=== PATIENT | female | born 1995 | race Caucasian/White ===

== ENCOUNTER → 2017-08-30 | Outpatient (CLI) | payer OTHER | LOC: HPND 09:30 | PROVIDERS: ATTEND Obstetrics & Gynecology | DX: O99.212 Obesity complicating pregnancy, second trimester (principal); E66.09 Other obesity due to excess calories; Z68.32 Body mass index [BMI] 32.0-32.9, adult; Z36.3 Encounter for antenatal screening for malformations; O36.8920 Maternal care for other specified fetal problems, second trimester, not applicable or unspecified; O09.212 Supervision of pregnancy with history of pre-term labor, second trimester; O44.42 Low lying placenta NOS or without hemorrhage, second trimester; O43.892 Other placental disorders, second trimester | CPT/HCPCS: 76811 ==

== ENCOUNTER 2017-09-27 10:29 | Emergency (ER) | payer OTHER ==
[2017-09-27 10:48] VITALS: BP 119/55; PULSE 87
[2017-09-27 10:50] VITALS: RESP 18
[2017-09-27 10:51] VITALS: TEMP 98.4
--- NOTE | 2017-09-27 10:52 | PD ---
HPI Chief Complaint Cramping Date Seen: Sep 27, 2017 Travel History International Travel<30 Days: No Contact w/Intl Traveler<30Days: No History of Present Illness HPI Patient is a 22-year-old at 23-4/7 weeks gestation who presents today for cramping. She notes that the cramping started over the last couple days. The cramping comes and goes and is associated with bloating. She denies any vaginal bleeding, but does note a light yellowish discharge for the past week. She denies any vaginal burning, itching, or pain. She denies any dysuria or hematuria. She has been feeling the baby moving. care with care for women. History Past Medical History Narrative Medical Spina Bifida Obstetric History Obstetric History History of delivery at 35 weeks gestation x 2 Past Surgical History Surgical History: No Previous Surgery Family History Family History: Negative Social History Alcohol Use: No Tobacco Use: No Substance Abuse: No Allergies-Medications (Allergen,Severity, Reaction): Coded Allergies: No Known Allergies (Verified Adverse Reaction, Unknown, 05/20/17) Home Meds Active Scripts Ferrous Sulfate (Ferrous Sulfate) 325 Mg (65 Mg Iron) Tablet, 325 MG PO TIDPC for Nutritional Supplement, #90 TAB 0 Refills Prov:Janey David MD R3 09/27/17 Nitrofurantoin Monohydrate Macrocrystals (Nitrofurantoin Monohydrate Macrocrystals) 100 Mg Cap, 100 MG PO BID for Infection, #14 CAP 0 Refills Prov:Janey David MD R3 09/27/17 Review of Systems Except as stated in HPI: all other systems reviewed are Neg General / Constitutional: No: Fever, Chills Eyes: No: Blurred Vision, Visual changes HENT: Headaches Cardiovascular: No: Chest Pain or Discomfort Respiratory: No: Short of Breath Gastrointestinal: No: Nausea, Vomiting, Diarrhea, Abdominal Pain, Constipation Genitourinary: Pelvic Pain, Discharge, No: Dysuria, Hematuria, Vaginal Bleeding Musculoskeletal: Edema Neurologic: Headache Psychiatric: No: Substance Abuse Physical Exam Narrative GENERAL: Well-nourished, well-developed patient. SKIN: Warm and dry. HEAD: Normocephalic and atraumatic. EYES: No scleral icterus. No injection or drainage. ENT: No nasal drainage noted. Mucous membranes pink. Airway patent. NECK: Supple, trachea midline. No JVD. CARDIOVASCULAR: Regular rate and rhythm without murmurs, gallops, or rubs. RESPIRATORY: Breath sounds equal bilaterally. No accessory muscle use. ABDOMEN/GI: Abdomen distended, soft, tender to palpation in all four quadrants. Gravid to 23 weeks size Fundal Height: 23cm GENITOURINARY: Yellowish white discharge in vaginal vault. External Genitalia: intact and normal in appearance BUS glands:normal Cervix: posterior Dilatation: 0 Effacement: 0 Station: -3 Presentation: - Membranes: intact Uterine Contractions: none FHT's: Category: I Baseline: 150 Reactive: + Variability: moderate Decels: none EXTREMITIES: No cyanosis or edema. BACK: Nontender without obvious deformity. No CVA tenderness. NEUROLOGICAL: Awake and alert. Motor and sensory grossly within normal limits. Normal speech. Data Data Vital Signs Reviewed: Yes Orders Orders Vital Signs (Adult) .ON ADMISSION (09/27/17 10:34) ^ Labor Status (09/27/17 10:34) Heart (09/27/17 10:34) ^ Hydration (09/27/17 10:34) Labs Laboratory Tests Test 09/27/17 10:45 09/27/17 11:00 09/27/17 11:25 Urine Color YELLOW Urine Turbidity HAZY Urine pH 8.0 Urine Specific [place] 1.036 Urine Protein 30 mg/dL Urine Glucose (UA) NEG mg/dL Urine Ketones NEG mg/dL Urine Occult Blood NEG Urine Nitrite NEG Urine Bilirubin NEG Urine Urobilinogen 2.0 MG/DL Urine Leukocyte Esterase LARGE Urine RBC 1 /hpf Urine WBC 1 /hpf Urine Squamous Epithelial Cells 26 /hpf Urine Bacteria MOD /hpf Urine Hyaline Casts 2 /lpf Urine Mucus FEW /lpf Microscopic Urinalysis Comment CULTURE INDICATED Clue Cells (Wet Prep) NONE SEEN Vaginal Trichomonas (Wet Prep) NONE SEEN Vaginal Yeast (Wet Prep) NONE SEEN White Blood Count 7.6 TH/MM3 Red Blood Count 4.20 MIL/MM3 Hemoglobin 9.7 GM/DL Hematocrit 29.9 % Mean Corpuscular Volume 71.2 FL Mean Corpuscular Hemoglobin 23.1 PG Mean Corpuscular Hemoglobin Concent 32.5 % Red Cell Distribution Width 16.4 % Platelet Count 240 TH/MM3 Mean Platelet Volume 8.8 FL Neutrophils (%) (Auto) 65.8 % Lymphocytes (%) (Auto) 24.0 % Monocytes (%) (Auto) 7.8 % Eosinophils (%) (Auto) 2.0 % Basophils (%) (Auto) 0.4 % Neutrophils # (Auto) 5.0 TH/MM3 Lymphocytes # (Auto) 1.8 TH/MM3 Monocytes # (Auto) 0.6 TH/MM3 Eosinophils # (Auto) 0.1 TH/MM3 Basophils # (Auto) 0.0 TH/MM3 CBC Comment DIFF FINAL Differential Comment Blood Urea Nitrogen 7 MG/DL Creatinine 0.45 MG/DL Random Glucose 77 MG/DL Total Protein 6.5 GM/DL Albumin 2.8 GM/DL Calcium Level 8.1 MG/DL Alkaline Phosphatase 69 U/L Aspartate Amino Transf (AST/SGOT) 8 U/L Alanine Aminotransferase (ALT/SGPT) 10 U/L Total Bilirubin 0.2 MG/DL Sodium Level 139 MEQ/L Potassium Level 3.9 MEQ/L Chloride Level 107 MEQ/L Carbon Dioxide Level 23.2 MEQ/L Anion Gap 9 MEQ/L Estimat Glomerular Filtration Rate 171 ML/MIN Last Impressions Gall Bladder Ultrasound 09/27/17 0000 Signed Impressions: CONCLUSION: 1. Unremarkable study. MDM Medical Record Reviewed: Yes Narrative Course / MDM 22 year old at 23-4/7 weeks gestation. 1. IUP- Category I tracing, reassuring. 2. Abdominal pain- will obtain CBC, CMP, UA, gallbladder US for further evaluation. 3. Vaginal Discharge- obtain wet prep and GC/chlamydia sdw Dr. Benavides Addendum: UA significant UTI. CBC significant for anemia. Workup otherwise negative. Will discharge home with Macrobid and ferrous sulfate. Encourage rest and oral hydration. Follow-up with [facility]. Diagnosis Diagnosis: Primary Impression: Acute cystitis during in second trimester Additional Impression: Iron (Fe) deficiency anemia Disposition: DISCHARGE HOME Condition: Stable Scripts Ferrous Sulfate (Ferrous Sulfate) 325 Mg (65 Mg Iron) Tablet 325 MG PO TIDPC for Nutritional Supplement, #90 TAB 0 Refills Prov: Janey David MD R3 09/27/17 Nitrofurantoin Monohydrate Macrocrystals (Nitrofurantoin Monohydrate Macrocrystals) 100 Mg Cap 100 MG PO BID for Infection, #14 CAP 0 Refills Prov: Janey David MD R3 09/27/17 Janey David MD R3 Sep 27, 2017 10:52
[2017-09-27] MEDS ORDERED: LACTATED RINGER'S 1000 ML INJ 1,000 ML IV SCH (11:09)
[2017-09-27 11:50] LABS: BASOPHIL % 0.4 % (0.0-2.0); EOSINOPHIL # 0.1 TH/MM3 (0-0.4); HEMATOCRIT 29.9 % (35.0-46.0); HEMOGLOBIN 9.7 GM/DL (11.6-15.3); LYMPHOCYTE # 1.8 TH/MM3 (1.0-4.8); MEAN CELL VOLUME 71.2 FL (80.0-100.0); MEAN CORPUSCULAR HEMOGLOBIN 23.1 PG (27.0-34.0); MEAN CORPUSCULAR HGB CONC 32.5 % (32.0-36.0); MEAN PLATELET VOLUME 8.8 FL (7.0-11.0); MONO % 7.8 % (0.0-8.0); MONOCYTE # 0.6 TH/MM3 (0-0.9); NEUT % 65.8 % (16.0-70.0); PLATELET COUNT 240 TH/MM3 (150-450); RED CELL DISTRIBUTION WIDTH 16.4 % (11.6-17.2); WHITE BLOOD COUNT 7.6 TH/MM3 (4.0-11.0)
[2017-09-27 12:07] LABS: BACTERIA, URINE MOD /hpf; BILIRUBIN, URINE NEG (NEG); BLOOD, URINE NEG (NEG); GLUCOSE,URINE NEG (NEG); HYALINE CAST, URINE 2 /lpf (RARE); KETONE, URINE NEG (NEG); MUCUS URINE FEW /lpf (OCC); NITRITE,URINE NEG (NEG); SQUAMOUS EPITHELIAL CELL URINE 26 /hpf (0-5); URINE COLOR YELLOW (YELLW/STRAW); URINE LEUKOCYTE ESTERASE LARGE (NEG)
[2017-09-27 12:10] LABS: ALBUMIN 2.8 GM/DL (3.4-5.0); ALT (GPT) 10 U/L (10-53); AST (GOT) 8 U/L (15-37); BICARBONATE 23.2 MEQ/L (21.0-32.0); BLOOD UREA NITROGEN 7 MG/DL (7-18); CALCIUM 8.1 MG/DL (8.5-10.1); CHLORIDE 107 MEQ/L (98-107); CREATININE 0.45 MG/DL (0.50-1.00); GLOMERULAR FILTRATION RATE 171 ML/MIN (>89); GLUCOSE,RANDOM 77 MG/DL (74-106); SODIUM (NA) 139 MEQ/L (136-145)
[2017-09-27 12:13] LABS: ALKALINE PHOSPHATASE 69 U/L (45-117); TOTAL BILIRUBIN ADULT 0.2 MG/DL (0.2-1.0); TOTAL PROTEIN 6.5 GM/DL (6.4-8.2)
--- NOTE | 2017-09-27 12:16 | RADRPT ---
EXAM DATE: 09/27/2017 12:13 PM EDT AGE/SEX: 22 years / Female INDICATIONS: Right upper quadrant pain. CLINICAL DATA: This is the patient's initial encounter. Patient reports that signs and/or symptoms h ave been present for 1 day and indicates a pain score of 0/10. MEDICAL/SURGICAL HISTORY: . 23 weeks . Endometriosis. . None. COMPARISON: No prior exams available for comparison. MEASUREMENTS (cm x cm x cm): Liver:__ 16.0 cm cm length Common Bile Duct:__ 2mm FINDINGS: Liver: Normal echotexture without focal lesion or ductal dilatation. Portal Vein: Normal flow is seen in portal vein. Common Duct: No intraluminal mass or stone visualized. Gallbladder: Demonstrates no wall thickening or pericholecystic fluid. No stones visualized. Pancreas: The visualized portions are within normal limits Right Kidney: No mass or hydronephrosis Other: None. CONCLUSION: 1. Unremarkable study. Electronically signed by: Meenakshi Greco MD 09/27/2017 12:15 PM EDT
[2017-09-27] MEDS ORDERED: NITR100C4 PO (12:25)
[2017-09-27] MEDS ORDERED: FERR325T18 PO (12:26)
== END 2017-09-27 12:45 | disposition home or self-care (01) ==
LOC: HOBED 10:29
DX: O23.12 Infections of bladder in pregnancy, second trimester (principal); O99.012 Anemia complicating pregnancy, second trimester; D50.9 Iron deficiency anemia, unspecified; Z3A.23 23 weeks gestation of pregnancy
CPT/HCPCS: 76705; 80053; 81001; 85025; 87086; 87210; 87491; 87591; 96361; 96374; 99284; J3010; J7120

== ENCOUNTER → 2017-09-27 | Outpatient (CLI) | payer OTHER ==
[~2017-09-27] MED LIST: FERR325T18 PO; NITR100C4 PO
== END ==
LOC: HPND 09:42
PROVIDERS: ATTEND Obstetrics & Gynecology
DX: O99.212 Obesity complicating pregnancy, second trimester (principal); E66.09 Other obesity due to excess calories; O35.2XX0 Maternal care for (suspected) hereditary disease in fetus, not applicable or unspecified; O44.42 Low lying placenta NOS or without hemorrhage, second trimester
CPT/HCPCS: 76816; 76817

== ENCOUNTER 2018-01-27 19:57 | Inpatient (IN) ==
[2018-01-27] MEDS ORDERED: Sod Chloride 0.9% Inj 1,000 ML IV.CONT PRN (21:39)
[2018-01-27] MEDS ORDERED: fentaNYL Citrate Inj 100 MCG/2 ML Ampul IV.PUSH PRN ×2 (21:39)
[2018-01-27] MEDS ORDERED: Sodium Chlor 0.9% Inj 500 ML IV.SIG PRN (21:39)
[2018-01-27] MEDS ORDERED: Naloxone Inj 0.4 MG/ML Vial IV.PUSH PRN (21:39)
[2018-01-27] MEDS ORDERED: Oxytocin 30 Units/500ml Premix 30 UNITS/500 ML BAG IV.SIG ONE (21:39)
[2018-01-27] MEDS ORDERED: Citric Acid/Sodium Citrate Liq 30 ML UDC PO SCH (21:45)
[2018-01-27 22:18] LABS: Baso % (Auto) 0.4 % (0.0-2.0); Eos # (Auto) 0.1 th/mm3 (0.0-0.4); Eos % (Auto) 0.7 % (0.0-4.0); Hematocrit 28.2 % (35.0-46.0); Hemoglobin 8.7 gm/dL (11.6-15.3); Lymph # (Auto) 1.9 th/mm3 (1.0-4.8); Lymph % (Auto) 20.8 % (9.0-44.0); Mean Corpuscular HGB Conc 31.1 % (32.0-36.0); Mean Corpuscular Hemoglobin 20.1 pg (27.0-34.0); Mean Corpuscular Volume 64.9 fL (80.0-100.0); Mono # (Auto) 0.6 th/mm3 (0.0-0.9); Mono % (Auto) 6.8 % (0.0-8.0); Neut # (Auto) 6.4 th/mm3 (1.8-7.7); Neut % (Auto) 71.3 % (16.0-70.0); Platelet Count 232 th/mm3 (150-450); Red Blood Count 4.34 mil/mm3 (4.00-5.30)
[2018-01-27 22:26] LABS: Bilirubin,Urine Negative (Negative); Clarity,Urine Hazy (Clear); Color,Urine Yellow (Yellw/Straw); Glucose,Urine (UA) Negative (Negative); Leukocyte Esterase,Urine Negative (Negative); Mucus,Urine Many /lpf (Occasional); Nitrite,Urine Negative (Negative); Specific Gravity,Urine 1.026 (1.002-1.035); Squamous Epithelial Cell,Urine 6 /hpf (0-5)
[2018-01-27 22:39] LABS: Amphetamine Urine With Conf Neg (Neg); Benzodiazepine Urine With Conf Neg (Neg)
--- NOTE | 2018-01-28 00:06 | P.HPOB ---
History of Present Illness Primary Care Physician: Yung Peraza MD Chief Complaint: Here for induction History of Present Illness: 22-year-old at 40 weeks 5 days gestation presents for induction of labor. care unremarkable to date. Estimated weight last week was 7 pounds 8 ounces pelvis test is 7 pounds 13 ounces. Patient has spina bifida Weeks Gestation:: 40 Para: 2 : 3 - Inpatient Certification I certify that the inpatient services were ordered in accordance with Medicare regulations governing the order. This includes certification that hospital inpatient services are reasonable and necessary and in the case of services not specified as inpatient-only under 42 CFR 419.22(n), that they are appropriately provided as inpatient services in accordance to with the 2-midnight benchmark under 43 CFR 412.3(e) Estimated Total Length of Stay (Days): 2 Plans for Post Hospital Care: Home Review of Systems All other systems reviewed negative except as stated in HPI PMFSH - History History Provided By: Patient Medications and Allergies Active Medications: Active Medications Citric Acid/Sodium Citrate (Sodium Citrate/Citric Acid Liq) 30 ml PO INVENTORY AUDITOR JEANNIE Stop: 01/31/18 21:44 Fentanyl Citrate (Fentanyl Inj) 50 mcg IV.PUSH Q1H PRN PRN Reason: Pain Scale 3 - 5 Fentanyl Citrate (Fentanyl Inj) 100 mcg IV.PUSH Q1H PRN PRN Reason: PAIN SCALE 6 TO 10 Lactated Ringer's (Lr 1000 Ml Inj) 1,000 mls @ 3,000 mls/hr IV.SIG UNSCH PRN PRN Reason: compromise or epidural Lactated Ringer's (Lr 1000 Ml Inj) 1,000 mls @ 125 mls/hr IV.CONT .Q8H [facility] Last Admin: 01/27/18 22:44 Dose: 125 mls/hr Sodium Chloride (Ns Inj) 500 mls @ 1,000 mls/hr IV.SIG UNSCH PRN PRN Reason: SEE LABEL COMMENTS Sodium Chloride (Ns Inj) 1,000 mls @ 100 mls/hr IV.CONT .Q10H PRN PRN Reason: SEE LABEL COMMENTS Lidocaine HCl (Xylocaine 1% Inj) 0.1 ml I-DERMAL PRN PRN PRN Reason: For IV start Stop: 01/30/18 21:38 Lidocaine HCl (Xylocaine 1% Inj) 10 ml INFILTRATN PRN PRN PRN Reason: For episiotomy repair Stop: 01/29/18 21:38 Mineral Oil (Muri-Lube Oil) 10 ml TOPICAL PRN PRN PRN Reason: PRN perineal massage Naloxone HCl (Narcan Inj) 0.1 mg IV.PUSH Q2M PRN PRN Reason: for opiate reversal Allergies Allergy/AdvReac Type Severity Reaction Status Date / Time No Known Allergies Allergy Verified 01/27/18 21:19 Home Medications Medication Instructions Recorded Confirmed Type No Known Home Medications 01/27/18 01/27/18 History Exam Vital signs: Vital Signs 01/27/18 20:23 01/27/18 22:32 01/27/18 22:42 Temperature 98.0 F 98.0 F Pulse Rate 95 H 101 H Respiratory Rate 18 17 Blood Pressure 119/74 118/73 Intake & Output 01/27/18 01/27/18 01/28/18 06:59 18:59 06:59 Weight 82.663 kg Narrative: GENERAL: Well-nourished, well-developed patient. SKIN: Warm and dry. HEAD: Normocephalic and atraumatic. EYES: No scleral icterus. No injection or drainage. ENT: No nasal drainage noted. Mucous membranes pink. Airway patent. NECK: Supple, trachea midline. No JVD. CARDIOVASCULAR: Regular rate and rhythm without murmurs, gallops, or rubs. RESPIRATORY: Breath sounds equal bilaterally. No accessory muscle use. BREASTS: Bilateral exam showed no masses , no retractions, no nipple discharge. ABDOMEN/GI: Abdomen soft, non-tender, bowel sounds present, no rebound, no guarding Gravid to 40 weeks size Fundal Height: Consistent with gestational age GENITOURINARY: External Genitalia: intact and normal in appearance BUS glands: Unremarkable Cervix: Closed Dilatation: 0 Effacement: 0 Station: -3 Presentation: Vertex Membranes: Intact Uterine Contractions: No FHT's: Category: 1 EXTREMITIES: No cyanosis or edema. BACK: Nontender without obvious deformity. No CVA tenderness. NEUROLOGICAL: Awake and alert. Motor and sensory grossly within normal limits. Five out of 5 muscle strength in all muscle groups. Normal speech. Results - Labs CBC & Chem 7: 01/27/18 20:35 Labs: Laboratory Results - last 24 hr 01/27/18 01/27/18 01/27/18 20:15 20:15 20:35 WBC 9.0 RBC 4.34 Hgb 8.7 L Hct 28.2 L MCV 64.9 L MCH 20.1 L MCHC 31.1 L RDW 18.0 H Plt Count 232 MPV 10.0 Neut % (Auto) 71.3 H Lymph % (Auto) 20.8 [place] % (Auto) 6.8 Eos % (Auto) 0.7 Baso % (Auto) 0.4 Neut # (Auto) 6.4 Lymph # (Auto) 1.9 [place] # (Auto) 0.6 Eos # (Auto) 0.1 Baso # (Auto) 0.0 WBC Differential . Differential Comment Auto diff final Urine Color Yellow Urine Clarity Hazy H Urine pH 6.0 Ur Specific [place] 1.026 Urine Protein 30 H Urine Glucose (UA) Negative Urine Ketones 80 or greater H Urine Occult Blood Negative Urine Nitrate Negative Urine Bilirubin Negative Urine Urobilinogen 2.0 H Ur Leukocyte Esterase Negative Ur Squamous Epith Cells 6 Urine Mucus Many H Micro UA Comment Culture not ind Ur Microscopic Review Not Reportable Urine Culture Comments Culture not ind Urine Opiates Screen Neg Ur Barbiturates Screen Neg Ur Amphetamine Screen Neg U Benzodiazepines Scrn Neg Urine Cocaine Screen Neg U Cannabinoids Screen Neg Blood Type 01/27/18 20:35 WBC RBC Hgb Hct MCV MCH MCHC RDW Plt Count MPV Neut % (Auto) Lymph % (Auto) [place] % (Auto) Eos % (Auto) Baso % (Auto) Neut # (Auto) Lymph # (Auto) [place] # (Auto) Eos # (Auto) Baso # (Auto) WBC Differential Differential Comment Urine Color Urine Clarity Urine pH Ur Specific [place] Urine Protein Urine Glucose (UA) Urine Ketones Urine Occult Blood Urine Nitrate Urine Bilirubin Urine Urobilinogen Ur Leukocyte Esterase Ur Squamous Epith Cells Urine Mucus Micro UA Comment Ur Microscopic Review Urine Culture Comments Urine Opiates Screen Ur Barbiturates Screen Ur Amphetamine Screen U Benzodiazepines Scrn Urine Cocaine Screen U Cannabinoids Screen Blood Type O Positive Caprini VTE Risk Assessment Caprini VTE Risk Assessment: No/Low Risk (score <= 1) Caprini Risk Assessment Model: Point Value = 1 Point Value = 2 Point Value = 3 Point Value = 5 Age 41-60 Minor surgery BMI > 25 kg/m2 Swollen legs Varicose veins or History of unexplained or recurrent spontaneous Oral contraceptives or hormone replacement Sepsis (< 1 month) Serious lung disease, including pneumonia (< 1 month) Abnormal pulmonary function Acute myocardial infarction Congestive heart failure (< 1 month) History of inflammatory bowel disease Medical patient at bed rest Age 61-74 Arthroscopic surgery Major open surgery (> 45 min) Laparoscopic surgery (> 45 min) Malignancy Confined to bed (> 72 hours) Immobilizing plaster cast Central venous access Age >= 75 History of VTE Family history of VTE Factor V Leiden Prothrombin [id number] Lupus anticoagulant Anticardiolipin antibodies Elevated serum homocysteine Heparin-induced thrombocytopenia Other congenital or acquired thrombophilia Stroke (< 1 month) Elective arthroplasty Hip, pelvis, or leg fracture Acute spinal cord injury (< 1 month) Prophylaxis Regimen: Total Risk Factor Score Risk Level Prophylaxis Regimen 0-1 Low Early ambulation 2 Moderate Order ONE of the following: *Sequential Compression Device (SCD) *Heparin 5000 units SQ BID 3-4 Higher Order ONE of the following medications: *Heparin 5000 units SQ TID *Enoxaparin/Lovenox 40 mg SQ daily (WT < 150 kg, CrCl > 30 mL/min) *Enoxaparin/Lovenox 30 mg SQ daily (WT < 150 kg, CrCl > 10-29 mL/min) *Enoxaparin/Lovenox 30 mg SQ BID (WT < 150 kg, CrCl > 30 mL/min) AND/OR *Sequential Compression Device (SCD) 5 or more Highest Order ONE of the following medications: *Heparin 5000 units SQ TID (Preferred with Epidurals) *Enoxaparin/Lovenox 40 mg SQ daily (WT < 150 kg, CrCl > 30 mL/min) *Enoxaparin/Lovenox 30 mg SQ daily (WT < 150 kg, CrCl > 10-29 mL/min) *Enoxaparin/Lovenox 30 mg SQ BID (WT < 150 kg, CrCl > 30 mL/min) AND *Sequential Compression Device (SCD) Assessment and Plan - Diagnosis (1) 40 weeks gestation of Code(s): Z3A.40 - 40 weeks gestation of Status: Acute - Plan induction of labor due to postdates - ABC
[2018-01-28] MEDS ORDERED: Zolpidem Tartrate 5 MG Tablet PO ONE (01:15)
--- NOTE | 2018-01-28 06:36 | P.OBLABOR ---
Objective Vital Signs: Vital Signs - 8 hr 01/27/18 22:42 01/28/18 03:51 Temperature 98.0 F 98.0 F Pulse Rate 104 H Respiratory Rate 17 14 Blood Pressure 120/75 Objective: Pelvic Exam: Cervix: Firm Dilatation: Closed Effacement: 0 Station: Posterior Presentation: Vertex Membranes: Intact FHT's: Category: 1 Weeks Gestation: 40 Patient Started Active Labor: No Medical Induction of Labor: Yes Artificial Rupture of Membrane: No Assessment and Plan - Diagnosis (1) 40 weeks gestation of Code(s): Z3A.40 - 40 weeks gestation of Status: Acute - Plan continue current plan
--- NOTE | 2018-01-28 12:12 | P.OBLABOR ---
Objective Vital Signs: Vital Signs - 8 hr 01/28/18 09:07 01/28/18 10:49 01/28/18 11:00 Temperature 99.2 F Pulse Rate 92 H 93 H Respiratory Rate 18 Blood Pressure 109/72 113/73 Objective: Pelvic Exam: Dilatation: 1 Effacement: 20 Station: -3 Presentation: vertex Membranes: intact Uterine Contractions: present FHT's: Category: 1 Baseline: 130 Reactive: yes Variability: moderate Decels: none Patient Started Active Labor: No Medical Induction of Labor: Yes (Cervidil inserted at 22:30) Artificial Rupture of Membrane: No Assessment and Plan - Diagnosis (1) 40 weeks gestation of Code(s): Z3A.40 - 40 weeks gestation of Status: Acute - Plan Discontinued Cervidil to due to tachysystole. Patient will be given a regular diet for lunch and then Pitocin may be added later to continue induction of labor.
[2018-01-28] MEDS ORDERED: Oxytocin 30 Units/500ml Premix 30 UNITS/500 ML BAG IV.SIG PRN (15:28)
--- NOTE | 2018-01-28 17:32 | P.OBLABOR ---
Objective Vital Signs: Vital Signs - 8 hr 01/28/18 10:49 01/28/18 11:00 01/28/18 12:23 Temperature 99.2 F Pulse Rate 93 H 86 Respiratory Rate 18 Blood Pressure 113/73 110/73 01/28/18 15:15 01/28/18 15:16 01/28/18 16:00 Temperature 98.7 F Pulse Rate 106 H 98 H Respiratory Rate 16 Blood Pressure 98/61 L 105/75 01/28/18 16:30 Temperature Pulse Rate 98 H Respiratory Rate Blood Pressure 106/65 Objective: Pelvic Exam at 3PM: Cervix Dilatation: 1 Effacement: 20% Station: -3 Presentation: vertex Membranes: intact Uterine Contractions: Q 3-4 minutes FHT's: Category: 1 Medical Induction of Labor: Yes (s/p cervidil and pit started) Assessment and Plan - Diagnosis (1) 40 weeks gestation of Code(s): Z3A.40 - 40 weeks gestation of Status: Acute - Plan Continue current plan
[2018-01-28] MEDS ORDERED: fentaNYL 2MCG-Bupiv 0.125% Epi 150 ML EPIDURAL ONE (19:52)
[2018-01-28] MEDS ORDERED: Lidocaine 1%/Epinephrine 1:200,000 PF Inj 30 ML Vial ONE (20:11)
--- NOTE | 2018-01-28 21:23 | P.OBLABOR ---
Subjective Interval history: Patient has received her epidural and is resting comfortably. no complaints at this time. Objective Vital Signs: Vital Signs - 8 hr 01/28/18 15:15 01/28/18 15:16 01/28/18 16:00 Temperature 98.7 F Pulse Rate 106 H 98 H Respiratory Rate 16 Blood Pressure 98/61 L 105/75 01/28/18 16:30 01/28/18 17:00 01/28/18 17:30 Temperature Pulse Rate 98 H 88 90 Respiratory Rate Blood Pressure 106/65 110/76 106/67 01/28/18 18:01 01/28/18 18:31 01/28/18 19:00 Temperature Pulse Rate 75 88 93 H Respiratory Rate Blood Pressure 109/68 116/65 114/85 01/28/18 19:31 01/28/18 20:00 Temperature Pulse Rate 92 H 99 H Respiratory Rate Blood Pressure 101/65 108/75 Objective: Pelvic Exam: Cervix: midline Dilatation: 3cm Effacement: 20% Station: -3 Presentation: vertex Membranes: intact Uterine Contractions: q2-3min FHT's: Category: 1 Baseline: 130s Reactive: yes Variability: moderate Decels: none Assessment and Plan - Diagnosis (1) 40 weeks gestation of Code(s): Z3A.40 - 40 weeks gestation of Status: Acute - Plan 22yo at 40/6 weeks gestation presenting for induction of labor on 01/27. Given Cervidil vaginally FHT Category 1, reassuring Cervix 07/05/-3 -Pitocin started -Pt with epidural, pain well-controlled and resting comfortably -Continue current plan - Attending Attestation The exam, history, and the medical decision-making described in the above note were completed with the assistance of the resident physician. I reviewed and agree with the findings presented. I attest that I had a [id number] encounter with the patient on the same day, and personally performed and documented my assessment and findings in the medical record.
[2018-01-29] MEDS ORDERED: Bupivacaine PF 0.25% Inj 10 ML Vial ONE (00:16)
[2018-01-29] MEDS ORDERED: Bisacodyl 10 MG Supp RECTAL PRN (01:40)
[2018-01-29] MEDS ORDERED: Oxytocin 30 Units/500ml Premix 30 UNITS/500 ML BAG IV.CONT PRN (01:40)
[2018-01-29] MEDS ORDERED: Witch Hazel 50%/Glyderin 12.5% 40 Pad Jar RECTAL PRN (01:40)
[2018-01-29] MEDS ORDERED: Zolpidem Tartrate 5 MG Tablet PO PRN (01:40)
[2018-01-29] MEDS ORDERED: Naloxone Inj 0.4 MG/ML Vial IV.PUSH PRN (01:40)
[2018-01-29] MEDS ORDERED: Benzocaine 20% Top Spray 60 ML Can TOPICAL PRN (01:40)
--- NOTE | 2018-01-29 01:40 | P.OBDELI ---
Weeks Gestation: 40 Active Labor Start Date: 01/28/18 Medical Induction of Labor: Yes Medical Induction Start Date: 01/27/18 Medical Induction Start Time: 22:30 Artificial Rupture of Membrane: No (spontaneous rupture) Anesthesia: Epidural Episiotomy: none Vaginal Delivery: Normal, Spontaneous Presentation: Occiput anterior Nuchal Cord: Other (loose body cord X 1) Delayed Cord Clamping (45 sec): Yes Placenta: Spontaneous delivery, Intact Laceration: None Estimated blood loss (mL): 200 Infant: Female Additional Information: The exam, history, and the medical decision-making described in the above note were completed with the assistance of the resident physician. I reviewed and agree with the findings presented. I attest that I had a [id number] encounter with the patient on the same day, and personally performed and documented my assessment and findings in the medical record.
[2018-01-29] MEDS: Senna/Docusate Sodium 8.6/50 MG Tablet PO SCH ×2 (09:05→20:43)
[2018-01-29] MEDS: Prenatal Vit/Ca/Iron/Folic Acid Tablet PO SCH (09:07)
[2018-01-29] MEDS: Acetaminophen 325 MG Tablet PO PRN ×3 (11:19→20:43)
[2018-01-29] MEDS ORDERED: Measles/Mumps/Rubella Vaccine Inj 0.5 ML Vial SQ ONE (16:00)
[2018-01-29] MEDS ORDERED: Diphtheria/Tetanus/Pertussis Vaccine Inj 0.5 ML Syringe IM ONE (16:00)
[2018-01-30] MEDS: Acetaminophen 325 MG Tablet PO PRN ×2 (01:04→06:33)
[2018-01-30] MEDS: Prenatal Vit/Ca/Iron/Folic Acid Tablet PO SCH (08:52)
[2018-01-30] MEDS: Senna/Docusate Sodium 8.6/50 MG Tablet PO SCH (08:52)
--- NOTE | 2018-01-30 08:59 | P.PNOB ---
Subjective Post day: 1 Interval history: day #1 afebrile with stable vitals overnight. Decreased lochia. Denies dysuria. No breast pain. Appetite good. No nausea or vomiting. Ambulating well. Denies calf pain or shortness of breath. Otherwise, she is doing well this morning and has no other complaints. Objective Vital Signs/I&O: Vital Signs 01/29/18 09:00 01/29/18 20:43 Temperature 98.1 F 98.2 F Pulse Rate 86 Respiratory Rate 18 Blood Pressure 109/72 Result Diagrams: 01/27/18 20:35 Objective Remarks: GENERAL: Well-nourished, well-developed patient. CARDIOVASCULAR: Regular rate and rhythm without murmurs, gallops, or rubs. RESPIRATORY: Breath sounds equal bilaterally. No accessory muscle use. ABDOMEN/GI: Abdomen soft, non-tender. Fundus: Firm, non-tender at umbilicus. GENITOURINARY: Light to moderate bleeding. EXTREMITIES: No cyanosis or edema, non-tender, without signs of DVT. Medications and IVs: Active Medications Acetaminophen (Tylenol) 650 mg PO Q4H PRN PRN Reason: PAIN SCALE 1 TO 2 Last Admin: 01/30/18 06:33 Dose: 650 mg Al Hydroxide/Mg Hydroxide (Milk Of Magnesia Liq) 30 ml PO Q12H PRN PRN Reason: Mild Constipation Benzocaine (Americaine 20% [place]) 1 spray TOPICAL Q4H PRN PRN Reason: For Perineum Discomfort Bisacodyl (Dulcolax Supp) 10 mg RECTAL DAILY PRN PRN Reason: SEVERE CONSITIPATION Citric Acid/Sodium Citrate (Sodium Citrate/Citric Acid Liq) 30 ml PO [employer]ORY CLERK [facility] Stop: 01/31/18 21:44 Fentanyl Citrate (Fentanyl Inj) 50 mcg IV.PUSH Q1H PRN PRN Reason: Pain Scale 3 - 5 Fentanyl Citrate (Fentanyl Inj) 100 mcg IV.PUSH Q1H PRN PRN Reason: PAIN SCALE 6 TO 10 Last Admin: 01/28/18 19:26 Dose: 100 mcg Lactated Ringer's (Lr 1000 Ml Inj) 1,000 mls @ 3,000 mls/hr IV.SIG UNSCH PRN PRN Reason: compromise or epidural Lactated Ringer's (Lr 1000 Ml Inj) 1,000 mls @ 125 mls/hr IV.CONT .Q8H [facility] Last Admin: 01/30/18 07:12 Dose: Not Given Sodium Chloride (Ns Inj) 500 mls @ 1,000 mls/hr IV.SIG UNSCH PRN PRN Reason: SEE LABEL COMMENTS Sodium Chloride (Ns Inj) 1,000 mls @ 100 mls/hr IV.CONT .Q10H PRN PRN Reason: SEE LABEL COMMENTS Oxytocin (Pitocin 30 Units/Ns 500 Ml Premix) 30 units in 500 mls @ 2 mls/hr IV.SIG TITRATE PRN; Protocol PRN Reason: For induction of labor Last Admin: 01/28/18 16:00 Dose: 2 milliunit/min, 2 mls/hr Oxytocin (Pitocin 30 Units/Ns 500 Ml Premix) 30 units in 500 mls @ 100 mls/hr IV.CONT UNSCH PRN PRN Reason: Heavy bleeding Ibuprofen (Motrin) 800 mg PO Q8H PRN PRN Reason: For Cramping Last Admin: 01/30/18 06:33 Dose: 800 mg Lactulose (Lactulose Liq) 30 ml PO DAILY PRN PRN Reason: SEVERE CONSITIPATION Lidocaine HCl (Xylocaine 1% Inj) 0.1 ml I-DERMAL PRN PRN PRN Reason: For IV start Stop: 01/30/18 21:38 Mineral Oil (Muri-Lube Oil) 10 ml TOPICAL PRN PRN PRN Reason: PRN perineal massage Naloxone HCl (Narcan Inj) 0.1 mg IV.PUSH Q2M PRN PRN Reason: for opiate reversal Naloxone HCl (Narcan Inj) 0.1 mg IV.PUSH Q2M PRN PRN Reason: for opiate reversal Ondansetron HCl (Zofran Odt) 4 mg PO Q6H PRN PRN Reason: NAUSEA OR VOMITING Vit/Calcium/Iron/Folic Ac (Stuartnatal Plus 3) 1 tab PO DAILY [facility] Last Admin: 01/29/18 09:07 Dose: Not Given Senna/Docusate Sodium (Trina-Colace) 1 tab PO BID [facility] Last Admin: 01/29/18 20:43 Dose: 1 tab Sennosides (Senokot) 17.2 mg PO Q12H PRN PRN Reason: Moderate Constipation Sodium Chloride (Ns Flush) 2 ml IV.FLUSH BID [facility] Last Admin: 01/30/18 07:11 Dose: Not Given Sodium Chloride (Ns Flush) 2 ml IV.FLUSH PRN PRN PRN Reason: FLUSH AFTER USING IV ACCESS Witch Kristi/Glycerin (Tucks Pads) 1 applicatio RECTAL QID PRN PRN Reason: HEMORRHOIDS Zolpidem Tartrate (Ambien) 5 mg PO HS PRN PRN Reason: SLEEP Assessment and Plan - Diagnosis (1) 40 weeks gestation of Code(s): Z3A.40 - 40 weeks gestation of Status: Acute - Plan 22 y/o female who is PPD# 1 s/p vaginal delivery after an uncomplicated . -Continue routine care. -Motrin PRN pain. -Encouraged OOB. Advised pelvic rest for 6 wks. - ctrl, she plans on having a tubal ligation. -Anticipate DC today or tomorrow wdw Dr. Garcia
== END 2018-01-30 11:28 | disposition home or self-care (01) ==
LOC: H2E 19:57 → H1EA 01-29 03:47
PROVIDERS: ADMIT Obstetrics & Gynecology; ATTEND Obstetrics & Gynecology